=== PATIENT | male | born 1990 | race Caucasian/White ===

== ENCOUNTER 2018-06-28 13:07 | Emergency (ER) | payer SELFPAY ==
--- NOTE | 2018-06-28 13:42 | ER Document Report ---
ED Psych Disorder / Suicide - General Chief Complaint: Suicidal Ideation Stated Complaint: PSYCH EVAL/SUICIDAL IDEATION Time Seen by Provider: 06/28/18 13:15 Notes: This is a 28-year-old male to the emergency department for evaluation of subtle ideation. Patient recently from the . Having thoughts of wanting to hurt himself. Has a plan. Also going through a lot of family, financial and relationship issues. TRAVEL OUTSIDE OF THE [place] IN LAST 30 DAYS: No - HPI Patient complains to provider of: Bizarre behavior, Suicidal ideation, Suicidal plan Onset was: Gradual - Related Data Allergies/Adverse Reactions: No Known Allergies Allergy (Verified 11/14/12 08:44) Past Medical History - General Information source: Patient - Social History Smoking Status: Former Smoker Cigarette use (# per day): No Frequency of alcohol use: None Drug Abuse: None Lives with: Family, Spouse/Significant other Family History: Reviewed & Not Pertinent Patient has suicidal ideation: Yes Patient has homicidal ideation: No - Medical History Medical History: Negative Renal/ Medical History: Denies: Hx Peritoneal Dialysis Past Surgical History: Reports: Hx Appendectomy - Immunizations Immunizations up to date: Yes Hx Diphtheria, Pertussis, Tetanus Vaccination: Yes Review of Systems - Review of Systems Notes: Constitutional: denies: Chills, Diaphoresis, Fever, Malaise, Weakness EENT: denies: Eye discharge, Blurred vision, Tearing, Double vision, Nose congestion, Nose discharge, Throat swelling, Mouth pain Cardiovascular: denies: Palpitations, Heart racing, Orthopnea, Dyspnea, Chest pain Respiratory: denies: Cough, Hurts to breathe, Wheezing, Shortness of breath Gastrointestinal: denies: Abdominal pain, Diarrhea, Nausea, Vomiting, Black stools, bright red blood in stool Genitourinary: denies: Burning, Dysuria, Discharge, Frequency, Flank pain, Hematuria Musculoskeletal: denies: Joint pain, Joint swelling, Muscle pain, Muscle stiffness, back pain Hematologic/Lymphatic: denies: Anemia, Easy bleeding, Easy bruising, Blood clots Neurological/Psychological: denies: Confusion, Dementia, complaining of the following: Depression, suicidal ideation Skin: No lesions, no masses, no skin breakdown, no abscesses Physical Exam - Vital signs Vitals: Temp Pulse Resp BP Pulse Ox 98.5 F 72 16 138/85 H 95 06/28/18 13:12 06/28/18 13:12 06/28/18 13:12 06/28/18 13:12 06/28/18 13:12 Interpretation: Normal - General General appearance: Appears well, Alert - HEENT Head: Normocephalic, Atraumatic Eyes: Normal Pupils: PERRL - Respiratory Respiratory status: No respiratory distress Chest status: Nontender Breath sounds: Normal Chest palpation: Normal - Cardiovascular Rhythm: Regular Heart sounds: Normal auscultation Murmur: No - Abdominal Inspection: Normal Distension: No distension Bowel sounds: Normal Tenderness: Nontender Organomegaly: No organomegaly - Back Back: Normal, Nontender - Extremities General upper extremity: Normal inspection, Nontender, Normal color, Normal ROM , Normal temperature General lower extremity: Normal inspection, Nontender, Normal color, Normal ROM , Normal temperature, Normal weight bearing. No: Manohar's sign - Neurological Neuro grossly intact: Yes Cognition: Normal Orientation: AAOx4 [place] Coma Scale Eye Opening: Spontaneous [place] Coma Scale Verbal: Oriented Bonnie Coma Scale Motor: Obeys Commands Chey[place] Coma Scale Total: 15 Speech: Normal Motor strength normal: LUE, RUE, LLE, RLE Sensory: Normal - Psychological Associated symptoms: Depressed, Flat affect, Tearful - Skin Skin Temperature: Warm Skin Moisture: Dry Skin Color: Normal Course - Re-evaluation Re-evalutation: 06/28/18 14:29 Patient definitely at high risk. will decide and states that he has been acting like he is going to work. She notes that he does not have a job but he has been stating that he has a job and will get up every day and go pretended like he is working. He did this once before when he got out of the . He would put his uniform on and go to the front [place] on [place]. She is extremely concerned about his behavior. Will place on IVC paperwork at this time and have mental health to evaluate. Patient did present here with mobile crisis team 06/28/18 15:12 Laboratory 06/28/18 06/28/18 06/28/18 13:45 13:45 13:45 WBC 8.7 RBC 5.17 Hgb 15.3 Hct 44.6 MCV 86 MCH 29.5 MCHC 34.3 RDW 13.4 Plt Count 302 Seg Neutrophils % 62.0 Lymphocytes % 30.6 Monocytes % 5.3 Eosinophils % 1.0 Basophils % 1.1 Absolute Neutrophils 5.4 Absolute Lymphocytes 2.7 Absolute Monocytes 0.5 Absolute Eosinophils 0.1 Absolute Basophils 0.1 Sodium 144.5 Potassium 4.4 Chloride 105 Carbon Dioxide 25 Anion Gap 15 BUN 15 Creatinine 0.98 Est GFR ( Amer) > 60 Est GFR (Non-Af Amer) > 60 Glucose 90 Calcium 10.0 Total Bilirubin 0.6 Direct Bilirubin 0.1 Neonat Total Bilirubin Not Reportable Neonat Direct Bilirubin Not Reportable Neonat Indirect Bili Not Reportable AST 26 ALT 36 Alkaline Phosphatase 58 Total Protein 8.1 Albumin 4.9 Urine Color YELLOW Urine Appearance SLIGHTLY-CLOUDY Urine pH 5.0 Ur Specific Groom 1.027 Urine Protein NEGATIVE Urine Glucose (UA) NEGATIVE Urine Ketones NEGATIVE Urine Blood NEGATIVE Urine Nitrite NEGATIVE Urine Bilirubin NEGATIVE Urine Urobilinogen NEGATIVE Ur Leukocyte Esterase NEGATIVE Urine WBC (Auto) 0 Urine Mucus (Auto) MANY Urine Ascorbic Acid NEGATIVE Salicylates < 1.0 L Urine Opiates Screen Urine Methadone Screen Acetaminophen < 10 L Ur Barbiturates Screen Ur Phencyclidine Scrn Ur Amphetamines Screen U Benzodiazepines Scrn Urine Cocaine Screen U Marijuana (THC) Screen Serum Alcohol < 10 06/28/18 13:45 WBC RBC Hgb Hct MCV MCH MCHC RDW Plt Count Seg Neutrophils % Lymphocytes % Monocytes % Eosinophils % Basophils % Absolute Neutrophils Absolute Lymphocytes Absolute Monocytes Absolute Eosinophils Absolute Basophils Sodium Potassium Chloride Carbon Dioxide Anion Gap BUN Creatinine Est GFR ( Amer) Est GFR (Non-Af Amer) Glucose Calcium Total Bilirubin Direct Bilirubin Neonat Total Bilirubin Neonat Direct Bilirubin Neonat Indirect Bili AST ALT Alkaline Phosphatase Total Protein Albumin Urine Color Urine Appearance Urine pH Ur Specific Groom Urine Protein Urine Glucose (UA) Urine Ketones Urine Blood Urine Nitrite Urine Bilirubin Urine Urobilinogen Ur Leukocyte Esterase Urine WBC (Auto) Urine Mucus (Auto) Urine Ascorbic Acid Salicylates Urine Opiates Screen NEGATIVE Urine Methadone Screen NEGATIVE Acetaminophen Ur Barbiturates Screen NEGATIVE Ur Phencyclidine Scrn NEGATIVE Ur Amphetamines Screen UNCONFIRMED POSITIVE U Benzodiazepines Scrn NEGATIVE Urine Cocaine Screen NEGATIVE U Marijuana (THC) Screen UNCONFIRMED POSITIVE Serum Alcohol - Vital Signs Vital signs: Temp Pulse Resp BP Pulse Ox 98.5 F 72 16 138/85 H 95 06/28/18 13:12 06/28/18 13:12 06/28/18 13:12 06/28/18 13:12 06/28/18 13:12 - Laboratory Result Diagrams: 06/28/18 13:45 06/28/18 13:45 Laboratory results interpreted by me: 06/28/18 13:45 Salicylates < 1.0 L Acetaminophen < 10 L - EKG Interpretation by Me EKG shows normal: Sinus rhythm, Marion, Intervals, QRS Complexes, ST-T Waves Discharge - Discharge Clinical Impression: Major depressive disorder with current active episode Qualifiers: Major depression recurrence: single episode Major depression episode severity: unspecified Qualified Code(s): F32.9 - Major depressive disorder, single episode , unspecified Referrals: LOCALMD,NO [NO LOCAL MD] - Follow up as needed
[2018-06-28 14:07] LABS: ABSOLUTE BASOPHILS # (AUTO) 0.1 10^3/uL (0.0-0.2); ABSOLUTE EOSINOPHILS # (AUTO) 0.1 10^3/uL (0.0-0.6); ABSOLUTE LYMPHOCYTES (AUTO) 2.7 10^3/uL (0.5-4.7); ABSOLUTE MONOCYTES (AUTO) 0.5 10^3/uL (0.1-1.4); ABSOLUTE NEUT (AUTO) 5.4 10^3/uL (1.7-8.2); BASOPHILS % (AUTO) 1.1 % (0-2); HEMATOCRIT 44.6 % (37.9-51.0); HEMOGLOBIN 15.3 g/dL (13.5-17.0); LYMPHOCYTES % (AUTO) 30.6 % (13-45); MEAN CORPUSCULAR HEMOGLOBIN 29.5 pg (27.0-33.4); MEAN CORPUSCULAR HGB CONC 34.3 g/dL (32.0-36.0); MEAN CORPUSCULAR VOLUME 86 fl (80-97); MONOCYTES % (AUTO) 5.3 % (3-13); PLATELET COUNT 302 10^3/uL (150-450); RED BLOOD COUNT 5.17 10^6/uL (4.35-5.55); RED CELL DISTRIBUTION WIDTH 13.4 % (11.5-14.0); TOTAL CELLS COUNTED % (AUTO) 100 %; WHITE BLOOD COUNT 8.7 10^3/uL (4.0-10.5)
--- NOTE | 2018-06-28 14:09 | PSYCHOLOGICAL NOTE ---
Psych Note - Psych Note Date seen by psych provider: 06/28/18 Time seen by psych provider: 14:30 Psych Note: Reason for Consult: suicidal ideation Consent permissions: , Marva Linares [phone] Pt presents to the ED with complaints of suicidal ideation. Pt states he attempted to hurt himself but did not do it. Pt is accompanied by Mobile Crisis and his . Mobile structural steel ironworker, Rolo Tejada, spoke with behavioral health team. They were contacted by law enforcement responded to concerns the patient was suicidal. Patient sent messages to his stating he was going to kill himself. Patient reportedly had not been working when his thought he was; when payday came in and patient did not receive a paycheck patient felt worthless. 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 He reports that he did not want to be stationed in [place] so he told the command that his son was really sick however when the command found out this was not true he was court marshalled. Patient admitted to the mobile structural steel ironworker that he does have a difficulties with telling the truth. Patient's spoke with the behavioral health team. She reports that patient has no history of mental health however knows that he had a difficult time accepting their son's diagnosis of autism. She states that he received orders to [place] and she had just set up services in the local area for their son and when she contacted the providers in [place] found out it was a 6 to 9 month wait list she decided that she would stay here until everything was set up in [place]. She disclosed that it was approximately 2 weeks before her was to go to [place] to check in and sign up on the wait list when he reportedly "lied to his command, was court Marshalled and lost rank." She disclosed that September 16, 2017 he was from the [employer] however did not admit that he was out until mid November. She states that the patient still got up every morning changed over into his cammies and acted like he was going to work. She reports that he had but had difficulty finding a job in approximately 5 weeks ago said that he had one was getting up getting dressed and leaving the home; "when he came home at night he did even say 'daddy is home from work' to our kids." She reports that she told him repeatedly that he did not have a job however he would became very angry and with stated "yes I do. " She reports that it was not until it was paid and he did not receive a paycheck that he became very despondent text her today that he was going to kill himself. Patient discloses that he arrived to [facility] in his 's car because he had thoughts of hurting himself. He states that it just started today; "I never really had thoughts like that before." Patient states that he has been depressed for a while and had a plan of killing himself by cutting. Patient does not have a history of cutting. He reports that he did not because his stopped him by just talking with him until the police arrived. He reports he has no history of mental health however he does have a family history with his mom being diagnosed with bipolar and his dad with depression. Patient states he is never been any medications before however did see a therapist when he was a kid; "I guess I was just a sad kid I do not know why I was in therapy. " Patient states he has been out of the [employer] since September and feels like he has no purpose; "I cannot find a purpose I have no purpose." He reports concerns that he has not been sleeping or eating and has been starting to shut everyone out. He reports that he feels ashamed. When asked about his recent bout of saying he had a job when he did not he confirms saying "I felt like I was letting everyone down. I just sat in my car in the parking lot all day." He reports that he would sit in the [facility] parking lot. He continued to report "I felt like I should be doing something better but I was not ever since I got out of the [employer] everything is been pointless... I was not ready to get out of the [employer]." When asked for clarification he stated that he got in trouble. He stated that his son is diagnosed with autism and when he was found out that he his son had a live 8 months in [place] before he could receive services he made a "fake letter" and gave it to his command and attempt to get out of going to [place]. He states that the result was being court martial old and lost his rank which resulted in him having to get out because of time and grade not being high enough arranged for as long as he been in. When asked if patient is glad that his stopped him and he was here to get help he stated "I do not know I do not know why I am here anymore." Patient is alert and orientated to person, place, time and circumstance. Mood is dysphoric with tearful affect. Patient endorses suicidal ideation with plan. Patient denies homicidal ideation. Delusions are not evident as he freely admits that he had lied (i.e. when getting out of the [employer] and then having a job). Thought processes are organized and linear. Eye contact is poor. Conversational speech is within normal rate, tone and prosody. Intellectual abilities appear to be within the average range. Attention and concentration are fair. Insight, judgment, impulse control are poor. Medication Recommendations per [facility]'s contracted psychiatrist Dr. Hyun FRIEDMAN Zyprexa 5 mg twice daily Cogentin 1 mg daily Prozac 20 mg daily BuSpar 10 mg daily twice daily Major depressive disorder with psychotic features Impression/plan: patient is recommended for IVC. Patient is dysphoric with tearful affect. Patient presents suicidal with plan. He reports feels of worthlessness with no purpose. 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 He again did this for the last 5 month, telling his he was going to work when he was sitting in the parking lot of [employer] in [place]. Patient is recommended for inpatient psychiatric treatment. Dr. Licona was consulted on the care management of this patient; attending physicians in agreement with recommendations and disposition.
[2018-06-28 14:16] LABS: APPEARANCE,URINE SLIGHTLY-CLOUDY; BILIRUBIN,URINE NEGATIVE (NEGATIVE); COLOR,URINE YELLOW; GLUCOSE, URINE NEGATIVE (NEGATIVE); KETONES,URINE NEGATIVE (NEGATIVE); LEUKOCYTE ESTERASE,URINE NEGATIVE (NEGATIVE); NITRITE,URINE NEGATIVE (NEGATIVE); PROTEIN,URINE NEGATIVE (NEGATIVE); URINE SPECIFIC GRAVITY 1.027; UROBILINOGEN,URINE NEGATIVE mg/dL (<2.0)
[2018-06-28 14:26] LABS: ACETAMINOPHEN < 10 ug/mL (10-30); ALANINE AMINOTRANSFERASE 36 U/L (21-72); ALBUMIN 4.9 g/dL (3.5-5.0); ALCOHOL < 10 mg/dL (NONE DETECTED); ALKALINE PHOSPHATASE 58 U/L (38-126); ANION GAP 15 (5-19); ASPARTATE AMINO TRANSFERASE 26 U/L (17-59); BILIRUBIN,DIRECT 0.1 mg/dL (0.0-0.4); BILIRUBIN,TOTAL 0.6 mg/dL (0.2-1.3); BLOOD UREA NITROGEN 15 mg/dL (7-20); CARBON DIOXIDE 25 mmol/L (22-30); CHLORIDE 105 mmol/L (98-107); GLUCOSE 90 mg/dL (75-110); POTASSIUM 4.4 mmol/L (3.6-5.0); SALICYLATE < 1.0 mg/dL (2.0-20.0); SODIUM 144.5 mmol/L (137-145); TOTAL PROTEIN 8.1 g/dL (6.3-8.2)
[2018-06-28 14:27] LABS: URINE AMPHETAMINES SCREEN UNCONFIRMED POSITIVE; URINE BARBITURATES SCREEN NEGATIVE; URINE BENZODIAZEPINES SCREEN NEGATIVE; URINE COCAINE SCREEN NEGATIVE; URINE MARIJUANA (THC) SCREEN UNCONFIRMED POSITIVE; URINE METHADONE SCREEN NEGATIVE; URINE PHENCYCLIDINE SCREEN NEGATIVE
[2018-06-28] MEDS: BENZTROPINE MESYLATE 1 MG TABLET PO SCH (17:41)
[2018-06-28] MEDS: OLANZAPINE 5 MG TABLET PO SCH (17:41)
[2018-06-28] MEDS: BUSPIRONE HCL 10 MG TABLET PO SCH (17:41)
[2018-06-28] MEDS: FLUOXETINE HCL 20 MG CAPSULE PO SCH (17:41)
--- NOTE | 2018-06-29 00:15 | EKG REPORT ---
SEVERITY:- ABNORMAL ECG - SINUS RHYTHM PROBABLE RIGHT VENTRICULAR HYPERTROPHY INFERIOR Q WAVES, PROBABLY NORMAL VARIATION : Confirmed by: France Frazier 29-Jun-2018 00:14:19
--- NOTE | 2018-06-29 09:32 | ER Document Report ---
Doctor's Note Notes: 06/29/18 09:32 Spoke with the patient this morning. He states he is feeling a little bit better but still feels depressed. He denies suicidal ideation at this time however he still is having feelings of worthlessness. He is embarrassed by his visit here. He denies any visual auditory hallucinations. Denies homicidal ideation. We are working with case management social worker about placement. No needs were identified upon rounding this morning.
[2018-06-29] MEDS: OLANZAPINE 5 MG TABLET PO SCH (10:18)
[2018-06-29] MEDS: FLUOXETINE HCL 20 MG CAPSULE PO SCH (10:18)
[2018-06-29] MEDS: BENZTROPINE MESYLATE 1 MG TABLET PO SCH (10:18)
[2018-06-29] MEDS: BUSPIRONE HCL 10 MG TABLET PO SCH (10:18)
[2018-06-29 16:14] VITALS: BP 118/74
== END 2018-06-29 18:11 ==
LOC: ER 13:07
DX: F32.3 Major depressive disorder, single episode, severe with psychotic features (principal); R45.851 Suicidal ideations; Z87.891 Personal history of nicotine dependence; Z81.8 Family history of other mental and behavioral disorders
CPT/HCPCS: 36415; 80053; 80307; 81001; 85025; 93005; 93010; 99285

== ENCOUNTER 2018-07-12 14:02 | Emergency (ER) | payer SELFPAY ==
--- NOTE | 2018-07-12 15:06 | ER Document Report ---
HPI - HPI Time Seen by Provider: 07/12/18 14:52 Pain Level: Denies Notes: Patient is a 28-year-old male who presents to the emergency department with request for medication refill. Patient denies any other complaints or needs today. Past Medical History - General Information source: Patient - Social History Smoking Status: Never Smoker Frequency of alcohol use: None Drug Abuse: None Family History: Reviewed & Not Pertinent Renal/ Medical History: Denies: Hx Peritoneal Dialysis Psychiatric Medical History: Reports: Hx Depression Past Surgical History: Reports: Hx Appendectomy - Immunizations Immunizations up to date: Yes Hx Diphtheria, Pertussis, Tetanus Vaccination: Yes Vertical Provider Document - CONSTITUTIONAL Notes: PHYSICAL EXAMINATION: GENERAL: Well-appearing, well-nourished and in no acute distress. HEAD: Atraumatic, normocephalic. EYES: Pupils equal round extraocular movements intact, conjunctiva are normal. ENT: Nares patent NECK: Normal range of motion LUNGS: No respiratory distress Musculoskeletal: Normal range of motion NEUROLOGICAL: Normal speech, normal gait. PSYCH: Normal mood, normal affect. SKIN: Warm, Dry, normal turgor, no rashes or lesions noted. - INFECTION CONTROL TRAVEL OUTSIDE OF THE [place] IN LAST 30 DAYS: No Course - Re-evaluation Re-evalutation: Patient is calm and cooperative. States he was discharged from inpatient psychiatric facility last week. States he gave him 1 week worth of medications. States that [place] however [facility] Patient reports he will be unable to get his medications filled for 2-3 weeks. Patient denies any acute complaints or suicidal or homicidal ideations. Discharge - Discharge Clinical Impression: Medication refill Condition: Stable Disposition: HOME, SELF-CARE Additional Instructions: Your medications were really refilled today per your request. Please follow-up with your primary provider as we discussed. Prescriptions: Quetiapine Fumarate [Seroquel 100 mg Tablet] 100 mg PO QHS #30 tablet Fluoxetine HCl [Prozac 20 mg Capsule] 20 mg PO DAILY #30 capsule Quetiapine Fumarate [Seroquel] 50 mg PO BID #60 tablet
== END 2018-07-12 15:19 | disposition home or self-care (01) ==
LOC: ER 14:02
DX: Z76.0 Encounter for issue of repeat prescription (principal)
CPT/HCPCS: 99281

== ENCOUNTER 2019-07-26 11:28 | Emergency (ER) | payer MEDICAID ==
--- NOTE | 2019-07-26 12:10 | ER Document Report ---
ED Medical Screen (RME) - General Chief Complaint: Abdominal Pain Stated Complaint: ABDOMINAL PAIN Time Seen by Provider: 07/26/19 12:06 Mode of Arrival: Ambulatory Information source: Patient Notes: 29-year-old male with no past medical history reports to the emergency department with complaints of lower abdominal pain testicular pain left inguinal pain. Reports it started 2 days after he lifted weights. Also reports urinary frequency denies penile discharge. Denies fever vomiting but reports some nausea. Reports he took Motrin prior to arrival. I have greeted and performed a rapid initial assessment of this patient. A comprehensive ED assessment and evaluation of the patient, analysis of test results and completion of the medical decision making process will be conducted by additional ED providers. Dictation of this chart was performed using voice recognition software; therefore, there may be some unintended grammatical errors. TRAVEL OUTSIDE OF THE [place] IN LAST 30 DAYS: No - Related Data Allergies/Adverse Reactions: No Known Allergies Allergy (Verified 07/26/19 12:03) Past Medical History Renal/ Medical History: Denies: Hx Peritoneal Dialysis Psychiatric Medical History: Reports: Hx Depression Past Surgical History: Reports: Hx Appendectomy - Immunizations Immunizations up to date: Yes Hx Diphtheria, Pertussis, Tetanus Vaccination: Yes Physical Exam - Vital signs Vitals: Temp Pulse Resp BP Pulse Ox 98.5 F 99 18 135/90 H 99 07/26/19 11:52 07/26/19 11:52 07/26/19 11:52 07/26/19 11:52 07/26/19 11:52 Course - Vital Signs Vital signs: Temp Pulse Resp BP Pulse Ox 98.5 F 99 18 135/90 H 99 07/26/19 11:52 07/26/19 11:52 07/26/19 11:52 07/26/19 11:52 07/26/19 11:52
--- NOTE | 2019-07-26 13:38 | RADIOLOGY REPORT (SQ) ---
EXAM DESCRIPTION: U/S SCROTUM W/DOPPLER COMPLETED DATE/TIME: 07/26/2019 1:11 pm REASON FOR STUDY: testicular pain, eval inguinal hernia also COMPARISON: None. TECHNIQUE: Static and realtime arriola scale imaging of the scrotum and testes. Selected color Doppler and spectral images recorded to document blood flow. LIMITATIONS: None. FINDINGS: RIGHT: TESTICLE: Normal size. Incidental finding of testicular microlithiasis. Normal blood flow. No mass . EPIDIDYMIS: Normal. HYDROCELE OR VARICOCELE: Small simple appearing hydrocele. HERNIA OR EXTRA-TESTICULAR MASS: No. OTHER: There appears to be a fat containing inguinal hernia. LEFT: TESTICLE: Normal size. Incidental finding of testicular microlithiasis. Normal blood flow. No mass . EPIDIDYMIS: Normal. HYDROCELE OR VARICOCELE: Small simple appearing hydrocele. HERNIA OR EXTRA-TESTICULAR MASS: No. OTHER: There appears to be a small fat containing inguinal hernia. IMPRESSION: Likely small bilateral fat containing hernias. No evidence of torsion or mass. TECHNICAL DOCUMENTATION: JOB ID: [id number] [employer]- All Rights Reserved Reading location - IP/workstation name: [email or web address]
[2019-07-26 14:15] LABS: APPEARANCE,URINE SLIGHTLY-CLOUDY; BILIRUBIN,URINE NEGATIVE (NEGATIVE); COLOR,URINE YELLOW; GLUCOSE, URINE NEGATIVE (NEGATIVE); KETONES,URINE NEGATIVE (NEGATIVE); LEUKOCYTE ESTERASE,URINE NEGATIVE (NEGATIVE); NITRITE,URINE NEGATIVE (NEGATIVE); PROTEIN,URINE NEGATIVE (NEGATIVE); URINE SPECIFIC GRAVITY 1.021; UROBILINOGEN,URINE NEGATIVE mg/dL (<2.0)
[2019-07-26] MEDS ORDERED: OXYCODONE-ACETAMINOPHEN 5-325 MG TABLET PO ONE (15:15)
[2019-07-26] MEDS ORDERED: MORPHINE SULFATE 10 MG/ML INJ IV ONE (18:22)
--- NOTE | 2019-07-26 19:07 | ER Document Report ---
ED General - General Mode of Arrival: Ambulatory TRAVEL OUTSIDE OF THE [place] IN LAST 30 DAYS: No - Related Data Home Medications: adderal <KIRA WARNER - Last Filed: 07/26/19 20:10> <ELLIOTT,UIR R - Last Filed: 07/26/19 21:51> - General Chief Complaint: Testicular Swelling Stated Complaint: ABDOMINAL PAIN Time Seen by Provider: 07/26/19 12:06 Primary Care Provider: TONY EDGE MD [Primary Care Provider] - Follow up as needed - [facility] Notes: 29-year-old male to the emergency department with complaints of low back pain, perineal pain, bilateral testicle pain and penile numbness. He states that he was lifting 350 pounds on Sunday when he felt pain into his back. He states that he then began to start to experience pain in his testicles and it would enter change from right to the left side intermittently. However over the past several days he has had more constant testicular pain and perineal pain and last night he started to have testicular numbness. He states that he still able to urinate and has not had urinary or bowel incontinence. He does state that the pain in his back does run down the back of his legs. He denies any other complaints. He does not use IV drugs. He has not been running a fever. (KIRA WARNER) - Related Data Allergies/Adverse Reactions: No Known Allergies Allergy (Verified 07/26/19 12:03) Past Medical History - General Information source: Patient - Social History Smoking Status: Never Smoker Chew tobacco use (# tins/day): Yes - 08/19 Frequency of alcohol use: None Drug Abuse: None Family History: Reviewed & Not Pertinent Patient has suicidal ideation: No Patient has homicidal ideation: No Renal/ Medical History: Denies: Hx Peritoneal Dialysis Psychiatric Medical History: Reports: Hx Depression Past Surgical History: Reports: Hx Appendectomy - Immunizations Immunizations up to date: Yes Hx Diphtheria, Pertussis, Tetanus Vaccination: Yes <KIRA WARNER - Last Filed: 07/26/19 20:10> Review of Systems - Review of Systems Constitutional: denies: Chills, Fever EENT: No symptoms reported Cardiovascular: denies: Chest pain, Palpitations, Heart racing, Dizziness, Lightheaded Respiratory: denies: Cough, Short of breath Gastrointestinal: denies: Abdominal pain, Diarrhea, Nausea, Vomiting Male Genitourinary: See HPI, Testicular pain, Other - Penile numbness and perineal pain Musculoskeletal: No symptoms reported Skin: No symptoms reported Hematologic/Lymphatic: No symptoms reported Neurological/Psychological: No symptoms reported -: Yes All other systems reviewed and negative <KIRA WARNER - Last Filed: 07/26/19 20:10> Physical Exam - Vital signs Interpretation: Normal - General General appearance: Alert - HEENT Head: Normocephalic, Atraumatic Eyes: Normal Pupils: PERRL - Respiratory Respiratory status: No respiratory distress Chest status: Nontender. No: Accessory muscle use Breath sounds: Normal. No: Rales, Rhonchi, Stridor, Wheezing Chest palpation: Normal - Cardiovascular Rhythm: Regular Heart sounds: Normal auscultation Murmur: No - Abdominal Inspection: Normal Distension: No distension Bowel sounds: Normal Tenderness: Nontender. No: Tender, McBurney's point, Crisostomo's sign, Guarding, Rebound Organomegaly: No organomegaly - Genitourinary Inspection: Normal. No: Blood at meatus - Back Back: Tender, Vertebra tenderness. No: Deformity/step-off, CVA tenderness - Extremities General upper extremity: Normal inspection, Nontender, Normal color, Normal ROM, Normal temperature General lower extremity: Normal inspection, Nontender, Normal color, Normal ROM, Normal temperature, Normal weight bearing - Neurological Neuro grossly intact: Yes Cognition: Normal Orientation: AAOx4 Nursery Coma Scale Eye Opening: Spontaneous Nursery Coma Scale Verbal: Oriented Bonnie Coma Scale Motor: Obeys Commands Bonnie Coma Scale Total: 15 Speech: Normal Cranial nerves: Normal Cerebellar coordination: Normal Motor strength normal: LUE, RUE, LLE, RLE Additional motor exam normals: Equal digital artist. No: Pronator drift Sensory: Normal - Psychological Associated symptoms: Normal affect, Normal mood - Skin Skin Temperature: Warm Skin Moisture: Dry Skin Color: Normal <KIRA WARNER - Last Filed: 07/26/19 20:10> - Vital signs Vitals: Temp Pulse Resp BP Pulse Ox 98.5 F 99 18 135/90 H 99 07/26/19 11:52 07/26/19 11:52 07/26/19 11:52 07/26/19 11:52 07/26/19 11:52 - General Notes: Patient appears to be in some mild discomfort but in no acute distress. (KIRA WARNER) - Genitourinary Notes: There is tenderness to palpation over bilateral testicles into the perineum without any edema, erythema or skin changes. Patient states that with palpation to the penis there is some numbness. He is circumcised. There is no evidence for phimosis or paraphimosis. There is no evidence for balanitis. There is no evidence for incarcerated inguinal hernias. Exam was chaperoned by JD Abrams (KIRA WARNER) - Back Notes: There is midline tenderness to palpation to the lumbar spine. There is positive straight leg raise bilaterally. Patient has intact patellar reflex in the right knee but there appears to be some decrease in the left patellar reflex patient is able to adduct and AB duct his legs against resistance without any weakness. (KIRA WARNER) Course - Laboratory Result Diagrams: 07/26/19 19:06 07/26/19 19:06 - Diagnostic Test Radiology reviewed: Image reviewed, Reports reviewed <KIRA WARNER - Last Filed: 07/26/19 20:10> - Laboratory Result Diagrams: 07/26/19 19:06 07/26/19 19:06 <URI ELLIOTT - Last Filed: 07/26/19 21:51> - Re-evaluation Re-evalutation: 07/26/[address] Ann, ER attending. He agrees that given the patient's penile numbness and pain into the perineum with a low back pain and positive straight leg raise bilaterally that patient will require a lumbar MRI. Discussed with patient and he agrees. Have asked charge nurse to call perinatal tech in. We will place a line, grab basic labs, treat pain. Patient agrees with the plan. Noted Scrotal US which is negative for torsion, mass, or evidence of epididymitis, incarcerated hernia. 07/26/19 20:11 Turned patient over to BOBBY Elliott pending MRI. We discussed patient's presenting signs and concerning symptoms for saddle paresthesias as well as radicular pain. She is aware of scrotal US. She will await MRI and disposition patient acco rdingly. (KIRA WARNER) 07/26/19 21:49 Received sign out from BOBBY Thurman. MRI results reviewed with pt and attending. Pt to follow up with neurosurgery (Dr. Billy Gutierrez of [facility] - information was printed out for pt). MRI results and US scrotum results were also printed and given to pt. Strict return precautions given. All questions/concerns addressed prior to discharge. (URI ELLIOTT) - Vital Signs Vital signs: Temp Pulse Resp BP Pulse Ox 97.9 F 78 18 131/70 H 96 07/26/19 19:54 07/26/19 19:54 07/26/19 19:54 07/26/19 19:54 07/26/19 19:54 - Laboratory Laboratory results interpreted by me: 07/26/19 19:06 Calcium 10.4 H Discharge <KIRA WARNER - Last Filed: 07/26/19 20:10> <URI ELLIOTT - Last Filed: 07/26/19 21:51> - Discharge Clinical Impression: Numbness, Testicular pain, Perineal numbness Low back pain Qualifiers: Chronicity: acute Back pain laterality: midline Sciatica presence: with sciatica Sciatica laterality: bilateral sciatica Qualified Code(s): M54.42 - Lumbago with sciatica, left side Condition: Stable Disposition: HOME, SELF-CARE Additional Instructions: Please follow up with neurosurgery (information printed and given to you) as discussed in 1-2 weeks. Please follow up with your primary care doctor in 3-5 days. Take medication as prescribed. Do not drink/drive while taking Polaris as it may make you drowsy. Return to ER for any worsening symptoms, including difficulty with urinating/defecating, numbness to private area, weakness, fever, increased pain, or any other symptoms that are concerning to you. Prescriptions: Lidocaine [Lidocaine Pain Relief] 1 each TP DAILY #20 adh..patch Referrals: TONY EDGE MD [Primary Care Provider] - Follow up as needed
[2019-07-26 19:29] LABS: ABSOLUTE BASOPHILS # (AUTO) 0.1 10^3/uL (0.0-0.2); ABSOLUTE EOSINOPHILS # (AUTO) 0.2 10^3/uL (0.0-0.6); ABSOLUTE LYMPHOCYTES (AUTO) 2.9 10^3/uL (0.5-4.7); ABSOLUTE MONOCYTES (AUTO) 0.5 10^3/uL (0.1-1.4); ABSOLUTE NEUT (AUTO) 4.4 10^3/uL (1.7-8.2); BASOPHILS % (AUTO) 1.1 % (0-2); EOSINOPHILS % (AUTO) 2.3 % (0-6); HEMATOCRIT 45.9 % (37.9-51.0); HEMOGLOBIN 15.8 g/dL (13.5-17.0); LYMPHOCYTES % (AUTO) 35.7 % (13-45); MEAN CORPUSCULAR HEMOGLOBIN 29.8 pg (27.0-33.4); MEAN CORPUSCULAR HGB CONC 34.4 g/dL (32.0-36.0); MEAN CORPUSCULAR VOLUME 87 fl (80-97); MONOCYTES % (AUTO) 6.5 % (3-13); PLATELET COUNT 263 10^3/uL (150-450); RED CELL DISTRIBUTION WIDTH 13.3 % (11.5-14.0); SEGMENTED NEUTROPHILS % (AUTO) 54.4 % (42-78); TOTAL CELLS COUNTED % (AUTO) 100 %; WHITE BLOOD COUNT 8.1 10^3/uL (4.0-10.5)
--- NOTE | 2019-07-26 19:44 | RADIOLOGY REPORT (SQ) ---
EXAM DESCRIPTION: MRI LUMBAR SPINE WITHOUT COMPLETED DATE/TIME: 07/26/2019 7:29 pm REASON FOR STUDY: low back pain, penile numbness, perineal discomfor COMPARISON: 11/16/2012 TECHNIQUE: Sagittal and Axial imaging includes T1, T2, STIR and gradient echo sequences. Coronal T2/ HASTE imaging. LIMITATIONS: None. FINDINGS: VISUALIZED UPPER ABDOMEN: Limited evaluation. No acute or suspicious findings suggested. SEGMENTATION: No transitional anatomy. The lowest well-developed disc space is labeled L5-S1. ALIGNMENT: Anatomic. VERTEBRAE: Intact. BONE MARROW: Normal. No marrow replacement or reactive changes. DISC SIGNAL: Mild disc desiccation and loss of height is seen at the L4/5 level. POSTERIOR ELEMENTS: Generally intact. No pars defect evident. HARDWARE: None in the spine. CORD AND CONUS: Normal in size and signal intensity. Conus at the appropriate level. SOFT TISSUES: No aortic aneurysm seen. No bulky retroperitoneal adenopathy or mass. No paraspinal mas s or fluid. L1-L2: No significant spinal stenosis or exit foraminal stenosis. L2-L3: No significant spinal stenosis or exit foraminal stenosis. L3-L4: No significant spinal stenosis or exit foraminal stenosis. L4-L5: Shallow, broad-based posterior disc bulge without significant central canal or neural foramina l stenosis. L5-S1: No significant spinal stenosis or exit foraminal stenosis. LOWER THORACIC: Incompletely imaged. No stenosis seen. SACRUM: Visualized upper sacrum intact. OTHER: No other significant findings. IMPRESSION: Trace single level spondylotic changes without significant central canal or neural rolando inal stenosis. TECHNICAL DOCUMENTATION: JOB ID: [id number] [email or web address]- All Rights Reserved Reading location - IP/workstation name: [email or web address]
[2019-07-26 19:56] LABS: ALBUMIN 4.7 g/dL (3.5-5.0); ALKALINE PHOSPHATASE 57 U/L (38-126); ANION GAP 13 (5-19); ASPARTATE AMINO TRANSFERASE 31 U/L (17-59); BILIRUBIN,DIRECT 0.1 mg/dL (0.0-0.4); BILIRUBIN,TOTAL 0.7 mg/dL (0.2-1.3); BLOOD UREA NITROGEN 13 mg/dL (7-20); CALCIUM 10.4 mg/dL (8.4-10.2); CARBON DIOXIDE 25 mmol/L (22-30); CHLORIDE 102 mmol/L (98-107); GLUCOSE 89 mg/dL (75-110); POTASSIUM 4.1 mmol/L (3.6-5.0); TOTAL PROTEIN 7.7 g/dL (6.3-8.2)
[2019-07-26 21:26] LABS: CHLAM PCR NOT DETECTED (NOT DETECT)
[2019-07-26] MEDS ORDERED: HYDROCODONE/ACETAMINOPHEN 5-325 MG (6 TAB/ER DISP) PO PRN (21:38)
[2019-07-26 22:26] VITALS: BP 152/82
== END 2019-07-26 22:29 | disposition home or self-care (01) ==
LOC: ER 11:28
DX: M54.42 Lumbago with sciatica, left side (principal); X50.0XXA Overexertion from strenuous movement or load, initial encounter; Y93.B9 Activity, other involving muscle strengthening exercises; R10.2 Pelvic and perineal pain; N50.811 Right testicular pain; N50.812 Left testicular pain; R20.0 Anesthesia of skin; F17.200 Nicotine dependence, unspecified, uncomplicated
CPT/HCPCS: 36415; 85025; 80053; 81001; 87491; 87591; 72148; 76870; 93976; J2270; 96374; 99284